=== PATIENT | male | born 1955 | race Caucasian/White ===

== ENCOUNTER 2019-12-02 08:43 | Day surgery (SDC) | payer BC, OTHER ==
--- NOTE | 2019-11-29 12:34 | EKG ---
Test Date: 2019-11-28 Test Time: 12:44:03 Injection Mold Tooling Technician: JASMEET MEASUREMENT RESULTS: Intervals: Rate: 57 CA: 192 QRSD: 86 QT: 420 QTc: 408 [place]: P: 51 CA: 192 QRS: -9 T: 17 INTERPRETIVE STATEMENTS: Sinus bradycardia Otherwise normal ECG No previous ECG available for comparison Electronically Signed On 11-29-19 12:33:10 CDT by Dmitri Martins
--- NOTE | 2019-11-30 21:00 | EKG ---
Test Date: 2019-11-28 Test Time: 12:19:35 Corporate Development Analyst: JASMEET MEASUREMENT RESULTS: Intervals: Rate: 58 WI: 190 QRSD: 88 QT: 424 QTc: 416 [place]: P: 46 WI: 190 QRS: -6 T: 19 INTERPRETIVE STATEMENTS: Poor data quality, interpretation may be adversely affected Sinus bradycardia Otherwise normal ECG No previous ECG available for comparison Electronically Signed On 11-30-19 20:57:09 CDT by Dmitri Martins
[2019-12-02] MEDS: OXYMETAZOLINE HCL 0.05% 15ML NAS ONE ×3 (09:27→09:50)
[2019-12-02] MEDS ORDERED: Ringers Lactate 1,000 ML IV ONE (09:32)
[2019-12-02] MEDS ORDERED: LIDOCAINE 2% MPF 5 ML VIAL ONE (11:29)
[2019-12-02] MEDS ORDERED: dexAMETHasone 10 MG/ML VIAL ONE (11:29)
[2019-12-02] MEDS ORDERED: FENTANYL CITR 250 MCG/5 ML ONE (11:29)
[2019-12-02] MEDS ORDERED: ROCURONIUM 50 MG/5 ML VIAL IV ONE (11:29)
[2019-12-02] MEDS ORDERED: propofoL 200 MG/20 ML VIAL IV ONE (11:29)
[2019-12-02] MEDS ORDERED: MIDAZOLAM HCL 2 MG/2 ML INJ ONE (11:29)
[2019-12-02] MEDS ORDERED: NA CHLORIDE 0.9% 500 ML ONE (11:38)
[2019-12-02] MEDS ORDERED: LIDOCAINE 1% W/EPI 1:100,000 MDV 20 ML VIAL ONE (11:38)
[2019-12-02] MEDS ORDERED: OXYMETAZOLINE HCL 0.05% 15ML NAS ONE (11:38)
[2019-12-02] MEDS ORDERED: ONDANSETRON 4 MG/2 ML VIAL ONE (13:58)
[2019-12-02] MEDS ORDERED: HYDROMORPHONE HCL 1 MG/ML INJ ONE (14:42)
[2019-12-02 14:52] VITALS: O2SAT 94
[2019-12-02 17:10] VITALS: BP 125/71; TEMP 97.7
--- NOTE | 2019-12-04 20:38 | OP ---
Date of Procedure: 12/02/2019 Surgeon: Courtney Long MD Preoperative Diagnoses: Septal deviation with nasal obstruction, inferior turbinate hypertrophy with nasal obstruction and left sage bullosa with nasal obstruction. Postoperative Diagnoses: Septal deviation with nasal obstruction, inferior turbinate hypertrophy with nasal obstruction and left sage bullosa with nasal obstruction. Procedure: 1. Septoplasty 2. Submucous resection of inferior turbinates and down fracture of inferior turbinates. 3. Left nasal endoscopy with middle turbinates/sage bullosa resection. Indication For Procedure: Mr. Guadalupe presented with chronic nasal obstruction and recurrent sinus concerns. He had previously undergone a CT scan at [facility], which did not show any significant mucosal disease, but demonstrated inferior turbinate hypertrophy with left middle turbinate sage bullosa and septal deviation. He was treated conservatively with intranasal steroid sprays for more than a month with no significant improvement in his symptoms. The risks, benefits, and alternatives to surgery were discussed with the patient who agreed to proceed. Description Of Procedure: The patient was brought to the operating room. He was placed under general anesthesia via oral endotracheal tube. His nasal hairs were trimmed and the nasal cavity was packed with Afrin-soaked pledgets. The nasal area was then draped in a standard fashion for nasal and endoscopic sinus surgery. The pledgets were removed and the nasal cavity was examined using headlight. There was a prominent maxillary crest on both the right and the left side. The bony septum superiorly deviated towards the right and obstructed the nasal airway. The inferior turbinates were noted to have good decongestion with prolonged application of Afrin. The left middle turbinate was noted to be wide, consistent with prior endoscopic findings. A 0-degree endoscope was used to perform a nasal endoscopy. The middle turbinate was injected with 1% lidocaine with epinephrine. A sickle knife was used to incise along the anterior aspect. The endoscopic scissors and Blakesley were used to remove the lateral aspect of the sage bullosa of the middle turbinates. During the removal, there was brisk pulsatile bleeding from an area on the middle turbinate. This area was packed with Afrin-soaked pledgets for several minutes. The packing was removed and that area was cauterized using suction Bovie. Further packing was applied to that area and attention was turned to the septum. A right hemitransfixion incision was made through the mucosa and the right mucosal flap was elevated using a Esmeralda elevator. The prominent maxillary crest was judiciously trimmed using the microdebrider fitted with an inferior turbinate blade to remove sufficient but conservative amounts of cartilage and bony tissue from this area. The left mucosal flap was then elevated. Based on the findings, the left mucosal flap seemed significantly scarred to the cartilage and elevation of the mucosal flap was difficult, resulting in a laceration of the mucosal flap. Once sufficient tissue was elevated, similar judicious trimming of the maxillary crest was performed using the microdebrider fitted with inferior turbinate blade. A Esmeralda elevator was then used to separate off the cartilaginous junction of the septum. A Adam rongeur was used to remove the deviated portions of the bony septum until the right nasal airway was significantly improved. Attention was then turned to the inferior turbinates. The inferior turbinates were injected with 1% lidocaine with epinephrine. A small incision was made through the mucosa using the sharp edge of the microdebrider inferior turbinate blade. A submucosal flap was elevated and excess soft tissue was judiciously removed after adequate removal of the soft tissue. A Riley elevator was used to down fracture the inferior turbinate bone in order to improve the nasal airway. The mucosa overall was quite oozy throughout the procedure and the nose was packed fully with Afrin-soaked pledgets and allowed to sit for approximately 5 to 10 minutes. After removal of all the pledgets and confirming a correct count, the left middle meatus was packed with Xerogel dissolvable nasal dressing to provide additional hemostasis to this area. Due to the tear in the left mucosa, decision was made to apply Jo splints. These were placed within the right and left nasal cavity and secured with a single 4-0 nylon suture to the anterior septum. The oral cavity and oropharynx were thoroughly suctioned. There was no significant bleeding noted coming from the nose or flowing into the oropharynx that I could discern. The procedure was then concluded and the patient was returned to care of anesthesia for awakening and extubation in the operating room, which proceeded without difficulty. Disposition: Patient will be discharged home later today and follow up with Dr. Long in 10 days for the removal of his splints. He should contact Dr. Long's office if there is any significant bleeding or severe/uncontrolled pain. CHRIS/CHRISTINA Voice ID: [id number] Report ID: [id number] JOSE RAUL
== END 2019-12-02 16:45 | disposition home or self-care (01) ==
LOC: OR 08:43
PROVIDERS: ATTEND Otolaryngology
PROC: 09BL3ZZ Excision of Nasal Turbinate, Percutaneous Approach (ICD-10-PCS; 2019-12-02)
PROC: 09TL8ZZ Resection of Nasal Turbinate, Via Natural or Artificial Opening Endoscopic (ICD-10-PCS; 2019-12-02)
PROC: 09BM0ZZ Excision of Nasal Septum, Open Approach (ICD-10-PCS; principal; 2019-12-02 10:45)
DX: J34.2 Deviated nasal septum (principal); J35.3 Hypertrophy of tonsils with hypertrophy of adenoids; J34.89 Other specified disorders of nose and nasal sinuses; R00.1 Bradycardia, unspecified; I10 Essential (primary) hypertension; Z79.899 Other long term (current) drug therapy
CPT/HCPCS: 93005 ×2; 88304; 88311; 30520; 30140; 31240; J2704; J2250; J3010; J1100; J1170; J7120; J7040; J2405; 88305

== ENCOUNTER 2020-03-24 11:09 | Emergency (ER) | payer OTHER ==
[2020-03-24 12:15] LABS: Urine Amorphous Sediment TRACE /HPF (NONE SEEN); Urine Bacteria <20 /HPF (NONE SEEN); Urine Culture Reflex Order NOT NEEDED; Urine Mucus 3+ /HPF (NONE SEEN); Urine RBC <5 /HPF (NONE SEEN)
--- NOTE | 2020-03-24 12:33 | RAD REPORT ---
EXAM DESCRIPTION: CT - Stone Protocol - 03/24/2020 12:11 pm CLINICAL HISTORY: Flank pain. flank/lower abd pain COMPARISON: No comparisons TECHNIQUE: Axial images were obtained without oral or IV contrast. Lack of contrast limits solid org an and vascular assessment. The [id number] spans the entirety of the system partially obscuring uppermost abdomen and lung bases. Coronal reformatted images were obtained and reviewed. All CT scans are performed using dose optimization technique as appropriate and may include automated exposure control or mA/KV adjustment according to patient size. FINDINGS: The lower lung cohen are clear. Imaged portions of the liver and spleen show no suspicious findings on non-contrast imaging. The panc reas demonstrates inflammatory changes surrounding the pancreatic head. The adrenal glands are normal . No pathologic lymphadenopathy in the abdomen or pelvis. No urinary tract stones or obstructive uropathy. No bowel obstruction, free air, free fluid or abscess. Normal appendix noted. No significant bony abnormality. IMPRESSION: Mild acute pancreatitis is suspected.
[2020-03-24 12:34] LABS: Urine Blood TRACE (NEG); Urine Glucose NEGATIVE (NEG); Urine Protein 1+ (NEG); Urine pH 5.5 (5.0-7.0)
[2020-03-24 12:50] LABS: Basophils % 0.8 % (0-1.3); Hematocrit 43.3 % (39.6-49.0); Lymphocytes % 19.8 % (15.3-44.8); RBC Red Blood Cell Count 4.82 M/uL (4.33-5.43)
[2020-03-24 13:12] LABS: Albumin 3.1 g/dL (3.4-5.0); Bilirubin Direct 0.2 mg/dL (0-0.2); Potassium 3.8 mmol/L (3.5-5.1); Protein, Total 7.6 g/dL (6.4-8.2)
--- NOTE | 2020-03-24 13:21 | ER ---
Nurse's Notes [facility] Name: Augusto Guadalupe Age: 64 yrs Sex: Male : 1955 Arrival Date: 03/24/2020 Time: 11:15 Bed 2 Private MD: Diagnosis: Acute pancreatitis, unspecified Presentation: 03/24 11:26 Chief complaint: Patient states: L sided abd pain that "moved" to lower back x 2 days. ss Pt states that this feels similar to the last time he had a kidney stones. Also c/o odorous and cloudy urine x 3 days. Coronavirus screen: Client denies travel out of the [place] in the last 14 days. Ebola Screen: Patient denies exposure to infectious person. Patient denies travel to an Ebola-affected area in the 21 days before illness onset. Initial Sepsis Screen: Does the patient meet any 2 criteria? No. Patient's initial sepsis screen is negative. Does the patient have a suspected source of infection? Yes: Dysuria/Frequency/Urgency/UTI. Risk Assessment: Do you want to hurt yourself or someone else? Patient reports no desire to harm self or others. Onset of symptoms was March 21, 2020. 11:26 Method Of Arrival: Ambulatory ss 11:26 Acuity: NILAY 3 ss Historical: - Allergies: 11:28 No Known Allergies; ss - PMHx: 11:28 Kidney stones; ss - PSHx: 11:28 nasal surgery; ss - Immunization history:: Adult Immunizations up to date. - Social history:: Smoking status: Patient denies any tobacco usage or history of. - Family history:: not pertinent. - Hospitalizations: : No recent hospitalization is reported. Screenin:45 Abuse screen: Denies threats or abuse. Nutritional screening: No deficits noted. rb1 Tuberculosis screening: No symptoms or risk factors identified. Fall Risk None identified. Assessment: 11:45 General: Appears in no apparent distress. distressed, Behavior is calm, cooperative, rb1 Reports chills for 12-24 hours. Pain: Complains of pain in left upper quadrant Pain radiates to left low back and right low back Pain currently is 3 out of 10 on a pain scale. Pain began 2-3 days ago. Neuro: Level of Consciousness is awake, alert, obeys commands, Oriented to person, place, time, situation. Cardiovascular: Capillary refill < 3 seconds. Respiratory: Airway is patent Respiratory effort is even, unlabored, Respiratory pattern is regular, symmetrical. GI: Reports nausea. : Reports Foul odor when urinating. Derm: Skin is pink, warm \\T\\ dry. 12:07 Reassessment: Pt. went to CT. rb1 12:37 Reassessment: Patient appears in no apparent distress at this time. No changes from rb1 previously documented assessment. Vital Signs: 11:26 BP 130 / 84; Pulse 72; Resp 16; Temp 98.3(TE); Pulse Ox 99% on R/A; Weight 108.86 kg; ss Height 5 ft. 8 in. (172.72 cm); Pain 2/10; 12:38 BP 129 / 81; Pulse 67; Resp 19; Pulse Ox 98% ; rb1 13:30 BP 128 / 85; Pulse 67; Resp 18; Pulse Ox 99% ; rb1 11:26 Body Mass Index 36.49 (108.86 kg, 172.72 cm) ED Course: 11:15 Patient arrived in ED. ds1 11:27 Triage completed. ss 11:28 Yves Kline MD is Attending Physician. rn 11:28 Arm band placed on left wrist. ss 11:44 Violet Aviles, BRENDA is Primary Nurse. rb1 11:45 Patient has correct armband on for positive identification. Bed in low position. Call rb1 light in reach. Side rails up X 1. Pulse ox on. NIBP on. 12:11 CT Stone Protocol In Process Unspecified. EDMS 12:33 Inserted saline lock: 20 gauge in right antecubital area, using aseptic technique. rb1 Blood collected. 13:09 Urine Dipstick--Ancillary (enter results) Sent. sv 13:48 No provider procedures requiring assistance completed. IV discontinued, intact, ss bleeding controlled, No redness/swelling at site. Pressure dressing applied. Administered Medications: No medications were administered Outcome: 13:20 Discharge ordered by . rn 13:49 Discharged to home ambulatory. rb1 13:49 Condition: stable 13:49 Discharge instructions given to patient, Instructed on discharge instructions, follow up and referral plans. medication usage, Demonstrated understanding of instructions, follow-up care, medications, Prescriptions given X 2. 13:50 Patient left the ED. rb1 Signatures: Dispatcher [facility] Courtney Bush RN RN sv Tereza Dove ds1 Yves Kline MD MD rn Maggie Roldan RN RN ss Violet Aviles RN RN rb1
--- NOTE | 2020-03-24 13:21 | EDPHYS ---
Physician Documentation [facility] Name: Augusto Guadalupe Age: 64 yrs Sex: Male : 1955 Arrival Date: 03/24/2020 Time: 11:15 Bed 2 Private MD: ED Physician Yves Kline HPI: 03/24 12:13 This 64 yrs old Male presents to ER via Ambulatory with complaints of Abd rn Pain, Lower Back Pain. 12:13 The patient presents with abdominal pain in the lower abdomen, in the left lower rn quadrant. 12:13 Onset: The symptoms/episode began/occurred 2 day(s) ago. The symptoms radiate to back. rn Associated signs and symptoms: none. Pertinent negatives: blood in stools, diarrhea, fever, testicular pain. Modifying factors: The symptoms are alleviated by nothing, the symptoms are aggravated by nothing. Severity of pain: At its worst the pain was moderate in the emergency department the pain has improved. The patient has experienced a previous episode. Reports left lower abd pain, began 2 days ago, radiates to left back, no injury/fever/vomiting/diarrhea. Reports constipation with last BM 3 days ago, no hx of abd surgery or obstruction. . Historical: - Allergies: 11:28 No Known Allergies; ss - PMHx: 11:28 Kidney stones; ss - PSHx: 11:28 nasal surgery; ss - Immunization history:: Adult Immunizations up to date. - Social history:: Smoking status: Patient denies any tobacco usage or history of. - Family history:: not pertinent. - Hospitalizations: : No recent hospitalization is reported. ROS: 12:13 Constitutional: Negative for fever, chills, and weight loss, Eyes: Negative for injury, rn pain, redness, and discharge, Neck: Negative for injury, pain, and swelling, Cardiovascular: Negative for chest pain, palpitations, and edema, Respiratory: Negative for shortness of breath, cough, wheezing, and pleuritic chest pain, Abdomen/GI: Negative for vomiting, diarrhea, and constipation Back: Negative for injury MS/Extremity: Negative for injury and deformity, Skin: Negative for injury, rash, and discoloration, Neuro: Negative for headache, weakness, numbness, tingling, and seizure. Exam: 12:13 Constitutional: This is a well developed, well nourished patient who is awake, alert, rn and in no acute distress. Head/Face: Normocephalic, atraumatic. Cardiovascular: Regular rate and rhythm. No pulse deficits. Respiratory: No increased work of breathing, no retractions or nasal flaring. Abdomen/GI: soft, non-tender Back: No spinal tenderness. No costovertebral tenderness. Full range of motion. MS/ Extremity: Pulses equal, no cyanosis. Neurovascular intact. Full, normal range of motion. Equal circumference. Neuro: Awake and alert, GCS 15, oriented to person, place, time, and situation. Cranial nerves II-XII grossly intact. Motor strength 5/5 in all extremities. Sensory grossly intact. Cerebellar exam normal. Vital Signs: 11:26 BP 130 / 84; Pulse 72; Resp 16; Temp 98.3(TE); Pulse Ox 99% on R/A; Weight 108.86 kg; ss Height 5 ft. 8 in. (172.72 cm); Pain 2/10; 12:38 BP 129 / 81; Pulse 67; Resp 19; Pulse Ox 98% ; rb1 13:30 BP 128 / 85; Pulse 67; Resp 18; Pulse Ox 99% ; rb1 11:26 Body Mass Index 36.49 (108.86 kg, 172.72 cm) ss MDM: 11:28 Patient medically screened. rn 13:20 Differential diagnosis: diverticulitis, non-specific abd pain, pancreatitis, rn Ureterolithiasis, urinary tract infection. Data reviewed: vital signs, nurses notes, lab test result(s), radiologic studies, CT scan, and as a result, I will discharge patient. Counseling: I had a detailed discussion with the patient and/or guardian regarding: the historical points, exam findings, and any diagnostic results supporting the discharge/admit diagnosis, lab results, radiology results, the need for outpatient follow up, to return to the emergency department if symptoms worsen or persist or if there are any questions or concerns that arise at home. Response to treatment: the patient's symptoms have mildly improved after treatment, and as a result, I will discharge patient. Special discussion: Based on the patient's Hx, exam, and Dx evaluation, there is no indication for emergent surgery or inpatient Tx. It is understood by the patient/guardian that if the Sx's persist or worsen they need to return immediately for re-evaluation. I discussed with the patient/guardian in detail that at this point there is no indication for admission to the hospital. It is understood, however, that if the symptoms persist or worsen the patient needs to return immediately for re-evaluation. 03/24 11:40 Order name: Basic Metabolic Panel; Complete Time: 13:19 rn 03/24 11:40 Order name: CBC with Diff; Complete Time: 13:19 rn 03/24 11:40 Order name: Hepatic Function; Complete Time: 13:19 rn 03/24 11:40 Order name: Lipase; Complete Time: 13:19 rn 03/24 11:40 Order name: Urine Microscopic Only; Complete Time: 12:33 rn 03/24 12:01 Order name: Urine Dipstick--Ancillary (enter results) eb 03/24 11:40 Order name: IV Saline Lock; Complete Time: 12:37 rn 03/24 11:40 Order name: Labs collected and sent; Complete Time: 12:37 rn 03/24 11:40 Order name: Urine Dipstick-Ancillary (obtain specimen); Complete Time: 11:59 rn 03/24 11:40 Order name: CT Stone Protocol; Complete Time: 12:33 rn 03/24 12:01 Order name: Urine Dipstick-Ancillary; Complete Time: 13:19 EDMS Administered Medications: No medications were administered Disposition: 03/24/20 13:20 Discharged to Home. Impression: Acute pancreatitis, unspecified. - Condition is Stable. - Discharge Instructions: Acute Pancreatitis. - Prescriptions for Zofran ODT 4 mg Oral tablet,disintegrating - place 1 tablet by TRANSLINGUAL route every 8 hours As needed; 20 tablet. Tylenol- Codeine #3 300-30 mg Oral Tablet - take 1 tablet by ORAL route every 6 hours As needed; 20 tablet. - Medication Reconciliation Form, Thank You Letter, Antibiotic Education, Prescription Opioid Use form. - Follow up: Private Physician; When: As needed; Reason: Recheck today's complaints, Re-evaluation by your physician. - Problem is new. - Symptoms have improved. Signatures: Dispatcher [employer] EDMS Yves Kline MD MD rn Smirch, Shelby, RN RN ss Violet Aviles RN RN rb1 Corrections: (The following items were deleted from the chart) 13:50 13:20 03/24/2020 13:20 Discharged to Home. Impression: Acute pancreatitis, unspecified. rb1 Condition is Stable. Forms are Medication Reconciliation Form, Thank You Letter, Antibiotic Education, Prescription Opioid Use. Follow up: Private Physician; When: As needed; Reason: Recheck today's complaints, Re-evaluation by your physician. Problem is new. Symptoms have improved. rn
[2020-03-24 14:03] VITALS: TEMP 98.3
[2020-03-24 14:06] VITALS: BP 128/85; O2SAT 99
== END 2020-03-24 13:50 | disposition home or self-care (01) ==
LOC: ER 11:09
DX: K85.90 Acute pancreatitis without necrosis or infection, unspecified (principal); Z87.442 Personal history of urinary calculi
CPT/HCPCS: 36415; 74176; 76377; 80048; 80076; 81003; 81015; 83690; 85025; 99284

== ENCOUNTER 2022-10-21 06:29 | Day surgery (SDC) | payer MEDICARE, OTHER ==
[2022-10-06 15:12] LABS: Absolute Lymphocytes (CBC) 1.9 K/uL (0.7-4.9); Hematocrit 46.3 % (39.6-49.0); Lymphocytes % 35.5 % (15.3-44.8); MCV 92.3 fL (80-100); MPV 8.9 fL (7.6-11.3); RBC Red Blood Cell Count 5.02 M/uL (4.33-5.43)
[2022-10-06 15:20] LABS: Potassium 3.8 mEq/L (3.5-5.1)
--- NOTE | 2022-10-06 22:27 | RAD REPORT ---
EXAM DESCRIPTION: Ankit Pa And Lat (2 Views)10/06/2022 2:34 pm CLINICAL HISTORY: Pre op pending urolift. Hypertension COMPARISON: None available TECHNIQUE: PA and lateral views of the chest. FINDINGS: The lungs are clear. No pneumothorax or effusion. The cardiomediastinal contours are unrem arkable. IMPRESSION: No acute cardiopulmonary process.
--- NOTE | 2022-10-08 16:03 | EKG ---
Test Date: 2022-10-06 Test Time: 14:47:56 Audit Specialist: HANNA MEASUREMENT RESULTS: Intervals: Rate: 53 NE: 200 QRSD: 146 QT: 468 QTc: 439 [place]: P: 63 NE: 200 QRS: 27 T: 35 INTERPRETIVE STATEMENTS: Sinus bradycardia Right bundle branch block Abnormal ECG Compared to ECG 11/28/2019 12:44:03 Right bundle-branch block now present Electronically Signed On 10-08-22 15:57:56 CDT by Dmitri Martins
[2022-10-21] MEDS ORDERED: Ringers Lactate 1,000 ML IV ONE ×2 (06:54→08:24)
[2022-10-21] MEDS ORDERED: propofoL 200 MG/20 ML VIAL IV ONE (07:13)
[2022-10-21] MEDS ORDERED: LIDOCAINE 1% MPF 5 ML VIAL ONE (07:14)
[2022-10-21] MEDS ORDERED: dexAMETHasone 10 MG/ML VIAL ONE (07:15)
[2022-10-21] MEDS ORDERED: ONDANSETRON 4 MG/2 ML VIAL ONE (07:15)
[2022-10-21] MEDS: CEFAZOLIN SODIUM 2 GM/VIAL ONE ×2 (07:38→07:41)
[2022-10-21] MEDS ORDERED: FENTANYL CITR 100 MCG/2 ML ONE (07:56)
[2022-10-21] MEDS ORDERED: CODEINE 30MG/APAP 300MG TAB PO PRN (09:28)
[2022-10-21] MEDS ORDERED: PHENAZOPYRIDINE 100MG TAB PO ONE (09:28)
[2022-10-21 09:43] VITALS: O2SAT 98
--- NOTE | 2022-10-21 09:59 | OP ---
Surgeon: RAFI ARMSTRONG Preoperative Diagnoses: 1.Benign prostatic hypertrophy with lower urinary tract obstruction and symptoms. 2.Severely enlarged prostate. 3.Meatal stenosis. Postoperative Diagnoses: 1.Benign prostatic hypertrophy with lower urinary tract obstruction and symptoms. 2.Severely enlarged prostate. 3.Meatal stenosis. Principal Procedures: 1.Prostatic urethral lift/UroLift with 11 total implants used and 10 successfully placed. 2.Urethral dilation using sounds. Indication For Procedure: Mr. Guadalupe is a 67-year-old gentleman with markedly enlarged prostate and elevated PSA that fluctuated with resolution of his inflammation. He underwent evaluation revealing a 92 g gland with an elevated median lobe with lateral sulci, but moderate intravesical projection. He was counseled that he would be a reasonable candidate for the UroLift as it fell within the 100 g maximum limit and anatomy was appropriate. Alternatives were discussed in detail. He elected to pr oceed with the UroLift. Procedure In Detail: The patient was consented in the preoperative holding area before being transfe rred to the operative suite where general anesthesia was induced. He was given Ancef 2 g IV antimicr obial prophylaxis and pneumo boots were provided for DVT prophylaxis. He was placed in the lithotomy position, padded and secured to the table appropriately, and his genitalia was prepped with Hibiclen s and draped in standard fashion. The case was begun using urethral sounds to dilate the meatus and fossa navicularis to 24-Egyptian. After successfully dilating the meatus and fossa navicularis, I was then able to insert the 20-Egyptian UroLift visual obturator and traversed the urethra and navigating t hrough the prostatic urethra before entry into the bladder. The anatomy was as had previously been d escribed cystoscopically on outpatient evaluation, and so I surveyed the bladder briefly as I decompr essed the fluid and urine, and there were no papillary mucosal lesions, foreign bodies, or stones. A s a result, I began by switching the visual obturator for the first UroLift implant, which was target ed in the left lateral wall of the prostate anterolaterally about 1.5 cm from the bladder neck. Star ting at about the 10 to 11 o'clock position after an anterior laterally, I angled the scope about 10 degrees and pulled the trigger once deploying the needle into the substance of the prostate. I then compressed an additional 10 to 15 degrees laterally to ensure complete delivery of the needle through to the capsular surface of the prostate. I then pulled the trigger a second time deploying the caps ular tab before pulling it a third time and retracting the needle. I then advanced the scope back to meier the midline and proximally toward the bladder about 2 to 3 mm until the monofilament was centere d in the delivery bay before pulling the trigger fourth time tailoring the suture and applying the ur ethral end piece. The end piece did situate itself within 1 mm of the bladder opening as was sumanth whalen at this point in the process. As a result, I utilized the same technique and employed a contrala teral implant this time on the right side of his prostate about 1.5 to 2 cm distal to the bladder nec k, taking care to deployed it about a 0.5 cm further distally. This was also placed anterolaterally at about the 10 to 11 o'clock position. I misspoke earlier when I said 10-11 o'clock on the left luly e, it was between 1 and 2 o'clock. I then turned my attention to the apex of the prostate and employ ed a third implant at the left apex anterolaterally between 1 and 2 o'clock at the level of the verum ontanum and at the right apex at the level of the verumontanum between 10 and 11 o'clock. This did s eem to nicely begin the creation of an anterior channel, but there was still significant intrusion of the right lateral lobe of the prostate into the urethral lumen while the left lateral lobe was more laterally displaced. As a result, I then employed a fifth implant in the area between the apical imp lant and the bladder neck implant on the left at the 10 to 11 o'clock position nicely lateralizing th e lateral lobar tissue there. A sixth implant was then employed in a similar location on the right s janet of his prostate. A survey of that channel created using a visual obturator revealed significant right lateral lobar intrusion despite symmetry of implants previously placed. As a result, a seventh implant was then attempted between the apical implant and the mid implant on the right, but because of the width of his prostate, despite more than 20 degrees of compression ultimately achieved, the ca psular tab simply pulled through the prostate. As a result, I utilized an eighth implant, the fourth on the right in order to achieve proper placement of the implant in that location. I again surveyed the channel and there was still significant right lateral lobar tissue, so I placed an additional im plant more in a stacked fashion in the right mid zone of the prostate and then another implant in the mid zone base region of the prostate each time surveying the channel created for the continuous ante rior channel without intrusion of the lateral lobar hypertrophy. After each of these implants had be en placed, I again surveyed the anterior channel created, and at the apex of the prostate, there was still some lateral lobar intrusion. As a result, I placed an additional implant at the right apex sl ightly more distally and in a stacked fashion at the level of the verumontanum in order to create a b eautiful continuous anterior channel that was less cutis. In the end, a total of 7 implants were boby crescencio on the right with 1 that pulled through and 3 implants were placed on the left in order to create a continuous anterior channel that did not deviate to 1 side or the other. Because his prostate was quite oozy throughout the case and required a great degree of irrigation, in the end, I placed a 22- Egyptian 2-way urethral Medel catheter into his bladder with ease and placed 30 cc of sterile water in the balloon. The catheter was placed to [id number] traction after I then irrigated his bladder with several 100 cc of saline in order to ensure no clots were within. Once I confirmed the absence of any clots and the return of irrigant fluid was cranberry colored, he was then taken out of the li thotomy position. He was awakened from general anesthesia, transferred to a stretcher, and then sandhu sferred to the recovery room in good condition. Complications: None. Discharge Disposition: He will be standard UroLift pathway with voiding trial given to him in recove ry as well as his urine is not significantly bloody, and subsequent followup to be established in abo ut 1 month's time. WR/MODL Voice ID: [id number] Report ID: [id number]
[2022-10-21 10:01] VITALS: BP 147/98; TEMP 98.1
[2022-10-21] MEDS ORDERED: CODEINE 30MG/APAP 300MG TAB ONE (10:13)
== END 2022-10-21 12:23 | disposition home or self-care (01) ==
LOC: OR 06:29
PROVIDERS: ATTEND Urology
PROC: 0T7D8DZ Dilation of Urethra with Intraluminal Device, Via Natural or Artificial Opening Endoscopic (ICD-10-PCS; principal; 2022-10-21 07:30)
DX: N40.1 Benign prostatic hyperplasia with lower urinary tract symptoms (principal); N13.8 Other obstructive and reflux uropathy; N35.916 Unspecified urethral stricture, male, overlapping sites
CPT/HCPCS: 93005; 87088; 85025; 87086; 80048; 36415; 71046; 52441; 52442 ×9; J2704; J2001; J3010; J1100; J2405; J7120 ×2